=== PATIENT | male | born 1945 | race Caucasian/White ===

== ENCOUNTER 2018-09-04 17:16 | Emergency (ER) | payer MEDICARE, BC ==
[2018-09-04 17:32] VITALS: BP 130/73
--- NOTE | 2018-09-04 17:35 | ED Physician Documentation ---
History of Present Illness - Stated complaint Stated Complaint: DIZZINESS/NAUSEA - Chief complaint Chief Complaint: Neuro - History obtained from History obtained from: Patient - Additonal information Additional information: Patient is a previously healthy 72-year-old male presenting with lightheadedness/dizziness and nausea since Thursday morning. Patient denies recent travel, new medications, known exposures, trauma prior to onset of symptoms.Patient reports associated mild headache without vision changes, ear ringing, chest pain, difficulty breathing, abdominal pain, urinary or stool changes, fever, rash, but admits to one episode of vomiting on . No other improving or worsening factors to his symptoms noted. Review of Systems Constitutional: denies: Fever Eyes: denies: Loss of vision Ears: denies: Loss of hearing, Tinnitus/ringing PD PAST MEDICAL HISTORY - Past Medical History Cardiovascular: None Psych: None Musculoskeletal: Osteoarthritis - Past Surgical History Ortho: Other - Present Medications Home Medications: Ambulatory Orders Medication Instructions Recorded Confirmed Ondansetron Odt [Zofran] 4 mg TL Q6H PRN #10 tablet 09/04/18 RX: Meclizine [Antivert] 25 mg PO Q6H #14 tablet 09/04/18 RX: Omeprazole 20 mg PO DAILY 09/04/18 09/04/18 - Allergies Allergies/Adverse Reactions: Allergies Allergy/AdvReac Type Severity Reaction Status Date / Time No Known Drug Allergies Allergy Verified 09/04/18 17:32 PD ED PE NORMAL - General General: Alert and oriented X 3, No acute distress, Well developed/nourished - HEENT HEENT: Atraumatic, PERRL (Gross visual acuity intact. No nystagmus.), EOMI, Moist mucous membranes - Neck Neck: Supple, no meningeal sign - Cardiac Cardiac: RRR, No murmur - Respiratory Respiratory: No respiratory distress, Clear bilaterally - Abdomen Abdomen: Normal bowel sounds, Soft, Non tender, Non distended - Derm Derm: Normal color, Warm and dry, No rash - Extremities Extremities: No deformity, No tenderness to palpate, No edema - Neuro Neuro: Alert and oriented X 3, No motor deficit, No sensory deficit - Psych Psych: Normal mood, Normal affect Results - Vitals Vitals: Vital Signs - 24 hr 09/04/18 09/04/18 17:29 18:17 Temperature 36.0 C L Heart Rate 89 Respiratory 16 18 Rate Blood Pressure 130/73 O2 Saturation 96 Oxygen O2 Source Room air - EKG (time done) 1752 Rate: Rate (enter#) (79) Rhythm: NSR Ischemia: Non specific changes - Labs Labs: Laboratory Tests 09/04/18 09/04/18 09/04/18 17:55 17:55 17:55 WBC 4.4 L RBC 5.30 Hgb 14.7 Hct 44.3 MCV 83.6 MCH 27.8 MCHC 33.3 RDW 14.3 Plt Count 149 MPV 7.8 Neut # (Auto) 2.6 Lymph # (Auto) 1.3 L Gilchrist # (Auto) 0.4 Eos # (Auto) 0.1 Baso # (Auto) 0.0 Absolute Nucleated RBC 0.00 Nucleated RBC % 0.0 Sodium 139 Potassium 4.0 Chloride 100 L Carbon Dioxide 28 Anion Gap 11.0 BUN 21 H Creatinine 1.0 Estimated GFR (MDRD) 74 L Glucose 110 H Calcium 9.1 Total Bilirubin 0.9 AST 22 ALT 25 Alkaline Phosphatase 58 Troponin I < 0.04 Total Protein 7.1 Albumin 3.9 Globulin 3.2 Albumin/Globulin Ratio 1.2 Lipase 26 PD MEDICAL DECISION MAKING - ED course Complexity details: reviewed results, re-evaluated patient, considered differential, d/w patient ED course: Most concerning for vertigo, but also considered other central causes of lightheadedness/dizziness including mass, stroke, bleed, etc. However, have a much lower suspicion for these etiologies. Also have low suspicion for systemic illness and infections otherwise, as well as intra-abdominal issues, respiratory issues, or cardiac issues like PR or unstable angina. CT head obtained which returned unremarkable and again have low suspicion for central cause of vertiginous-like symptoms. Screening lab work also returned unremarkable. EKG and troponin unremarkable. Patient reports mild improvement with meclizine and Zofran. At this time, feel that he is safe to discharge home and provided prescriptions for both Zofran and meclizine, as well as had extensive discussions regarding strict return precautions and appropriate follow-up. Patient voiced understanding and is comfortable with discharge plan. Departure - Departure Disposition: 01 Home, Self Care Clinical Impression: Vertigo Condition: Good Instructions: ED Vertigo Unspecified Follow-Up: your,doctor [Other] - Within 3 Days Prescriptions: RX: Meclizine [Antivert] 25 mg PO Q6H #14 tablet Ondansetron Odt [Zofran] 4 mg TL Q6H PRN #10 tablet PRN Reason: Nausea / Vomiting Comments: May use meclizine and Zofran as prescribed for lightheadedness/dizziness and nausea, respectively. Also recommend hydration, healthy diet, rest, and follow- up with your primary care physician in next 2-3 days or immediately upon return to [place]. Please return to the ED sooner if experience worsening symptoms or have other concerns. Discharge Date/Time: 09/04/18 20:38
[2018-09-04] MEDS ORDERED: ONDANSETRON 4 MG/2 ML VIAL IVP STA (17:47)
[2018-09-04] MEDS ORDERED: MECLIZINE 12.5 MG TABLET PO STA (17:47)
[2018-09-04] MEDS ORDERED: SODIUM CHLORIDE 0.9% 1,000 ML IV ONE (17:47)
[2018-09-04 18:09] LABS: BASOPHILS % (AUTO) 0.3 %; EOSINOPHILS # (AUTO) 0.1 10^3/uL (0.0-0.7); EOSINOPHILS % (AUTO) 1.6 %; HGB - HEMOGLOBIN 14.7 g/dL (14.0-18.0); LYMPHOCYTES # (AUTO) 1.3 10^3/uL (1.5-3.5); LYMPHOCYTES % (AUTO) 29.3 %; MEAN CORPUSCULAR HEMOGLOBIN 27.8 pg (27.0-31.0); MEAN CORPUSCULAR HGB CONC 33.3 g/dL (32.0-36.0); MEAN CORPUSCULAR VOLUME 83.6 fL (80.0-94.0); MEAN PLATELET VOLUME 7.8 fL (7.4-11.4); MONOCYTES # (AUTO) 0.4 10^3/uL (0.0-1.0); MONOCYTES % (AUTO) 8.7 %; NEUTROPHILS # (AUTO) 2.6 10^3/uL (1.5-6.6); NEUTROPHILS % (AUTO) 60.1 %; PLT - PLATELET COUNT 149 10^3/uL (130-450); RED CELL DISTRIBUTION WIDTH 14.3 % (12.0-15.0); WHITE BLOOD COUNT 4.4 x10^3/uL (4.8-10.8)
[2018-09-04 18:20] LABS: ALBUMIN 3.9 g/dL (3.2-5.5); ALBUMIN/GLOBULIN RATIO 1.2 (1.0-2.2); BILIRUBIN,TOTAL 0.9 mg/dL (0.2-1.0); CALCIUM 9.1 mg/dL (8.5-10.3); TOTAL PROTEIN 7.1 g/dL (6.7-8.2)
--- NOTE | 2018-09-04 19:11 | CT Report ---
Reason: lightheadedness with nausea, no LOC Procedure Date: 09/04/2018 Accession Number: [id number] / [id number] Procedure: CT - HEAD WO CPT Code: FULL RESULT: EXAM: CT HEAD EXAM DATE: 09/04/2018 06:46 PM. CLINICAL HISTORY: Dizziness and giddiness. COMPARISON: None. TECHNIQUE: Multiaxial CT images were obtained from the foramen magnum to the vertex. Reformats: Sagittal and coronal. IV contrast: None. In accordance with CT protocol optimization, one or more of the following dose reduction techniques were utilized for this exam: automated exposure control, adjustment of mA and/or KV based on patient size, or use of iterative reconstructive technique. FINDINGS: Parenchyma: No intraparenchymal hemorrhage. No evidence of mass, midline shift, or CT findings of infarction. Patterson-white differentiation is distinct. Extraaxial Spaces: Normal for age. No subdural or epidural collections identified. Ventricles: Normal in size and position. Sinuses and Orbits: Imaged paranasal sinuses, orbits, and mastoids show no significant abnormality. Bones: No evidence of fracture or calvarial defect. Other: None. IMPRESSION: No acute intracranial abnormality demonstrated. [facility]
== END 2018-09-04 20:38 | disposition home or self-care (01) ==
LOC: ED 17:16
DX: R42 Dizziness and giddiness (principal)
CPT/HCPCS: 36415; 70450; 80053; 83690; 84484; 85025; 93005; 96361; 96374; 99283; A9270